=== PATIENT | female | born 1990 | race African-American/Black ===

== ENCOUNTER 2020-09-05 21:21 | Emergency (ER) | payer OTHER ==
[~2020-09-05] VITALS: Ht 157.5 cm; Wt 63.5 kg
[~2020-09-05 21:21] MED LIST: BUTALB-APAP-CA1 EACH PO; CIPROFLOXACIN500 M1 PO; FLONASE 0.05%50 MCG NASAL; IBUPROFEN 600600 M1 PO; MACROBID 100 M100 M1 PO; PYRIDIUM200 MG PO
[2020-09-05] MEDS ORDERED: PROAIR HFA8.5 GM INH (22:41)
[2020-09-05 23:01] VITALS: BP 00/00
== END 2020-09-05 23:03 | disposition home or self-care (01) ==
LOC: ER 21:21
DX: J06.9 Acute upper respiratory infection, unspecified (principal); Z20.822 Contact with and (suspected) exposure to COVID-19; Z79.1 Long term (current) use of non-steroidal anti-inflammatories (NSAID); Z79.899 Other long term (current) drug therapy